=== PATIENT | female | born 1950 | race Asian ===

== ENCOUNTER 2020-02-17 16:33 | Emergency (ER) | payer MEDICARE, OTHER ==
[~2020-02-17] VITALS: Ht 157.5 cm; Wt 66.4 kg
--- NOTE | 2020-02-17 19:30 | NUR ---
nuclear medicine pet ct technologist: Pt walked back from lobby to room at this time. NAD noted at this time.
[2020-02-17 19:36] VITALS: BP 161/76
--- NOTE | 2020-02-17 19:47 | NUR ---
PT HAS HAD CONFIRMED CASE SCABIES X1 MONTHS. COMPLIANT WITH PRESCIBED MEDS, BUT CAN'T GET RID OF THEM.
--- NOTE | 2020-02-17 20:26 | NUR ---
AT BEDSIDE FOR ASSESSMENT.
--- NOTE | 2020-02-17 20:33 | NUR ---
N/O RECEIVED FOR LABS.
[2020-02-17 21:13] LABS: BASOPHILS % (AUTO) 1 % (0-1); EOSINOPHILS % (AUTO) 1 % (1-7); LYMPHOCYTES % (AUTO) 36 % (22-44); MEAN CORPUSCULAR HEMOGLOBIN 30.4 pg (27.0-34.8); MEAN CORPUSCULAR HGB CONC 33.5 g/dL (32.4-35.8); MEAN PLATELET VOLUME 8.2 fL (7.4-10.4); MONOCYTES % (AUTO) 8 % (2-9); NEUTROPHILS % (AUTO) 55 % (42-75); PLATELET COUNT 187 x10^3/uL (130-400); RED BLOOD COUNT 4.61 x10^6/uL (3.82-5.3); RED CELL DISTRIBUTION WIDTH 14.1 % (9.6-15.2)
[2020-02-17 21:21] LABS: ALBUMIN 3.8 g/dL (3.4-5.0); ANION GAP 4 mmol/L (5-15); CALCIUM 8.7 mg/dL (8.5-10.1); CHLORIDE 110 mmol/L (98-107)
[2020-02-17 21:24] LABS: MD NO
[2020-02-17 21:34] LABS: ALANINE AMINOTRANSFERASE 32 U/L (12-78); ALKALINE PHOSPHATASE 147 U/L (45-117); BILIRUBIN,TOTAL 0.7 mg/dL (0.2-1.0); CREATININE 0.78 mg/dL (0.55-1.02); FREE T4 (FREE THYROXINE) 1.06 ng/dL (0.76-1.46); TOTAL PROTEIN 7.8 g/dL (6.4-8.2)
--- NOTE | 2020-02-17 21:39 | NUR ---
ALL RESULTS ARE BACK AT THIS TIME. CHART UP FOR RECHECK.
== END 2020-02-17 22:09 | disposition home or self-care (01) ==
LOC: ED 22:05
DX: L24.9 Irritant contact dermatitis, unspecified cause (principal); R21 Rash and other nonspecific skin eruption
CPT/HCPCS: 36415; 80053; 84439; 84443; 85025; 99283